=== PATIENT | female | born 1965 ===

== ENCOUNTER 2023-10-09 06:26 | Day surgery (SDC) | payer OTHER, SELFPAY ==
[2023-09-25 13:47] VITALS: BMI 25.0
[2023-10-09] VITALS (11 sets, daily range): BP systolic 96–167; BP diastolic 67–82; BMI 25.0
[2023-10-09] MEDS: NORMOSOL-R 1000 IV (13:13)
[2023-10-09] MEDS: TYLENOL 1000 MG PO (13:31)
[2023-10-09] MEDS: TRANSDERM-SCOP 1 PATCH TRANSDERM (13:31)
--- NOTE | 2023-10-09 16:14 | SUR.PHASEI ---
On arrival to PACU patient reporting pain in rt front tooth/upper lip. Some blood noted at base of tooth next bto gum, Alida [employer] informed, she states she will communicate same with anesthesiologist. Jing Benz RN BSN.
[2023-10-09] MEDS: SUBLIMAZE 25 MCG IV (16:31)
--- NOTE | 2023-10-09 16:34 | SUR.PHASEI ---
Dr Navarro saw patient regarding rt front tooth pain, he is notifying Dr Chavez about same. Jing Benz RN BSN.
== END 2023-10-09 17:37 | disposition home or self-care (01) ==
LOC: SDS 06:26
PROVIDERS: ATTENDING PHYSICIAN Otolaryngology; FAMILY PHYSICIAN Family Medicine
DX: J38.1 Polyp of vocal cord and larynx (principal); J38.4 Edema of larynx; R49.0 Dysphonia; Z72.0 Tobacco use
CPT/HCPCS: 31540; 88305; 36415; 93005